=== PATIENT | female | born 2000 | race Two or more races ===

== ENCOUNTER 2021-01-28 07:46 | Inpatient (IN) | payer OTHER ==
[~2021-01-28] VITALS: Ht 157.5 cm; Wt 87.5 kg
[2021-01-28] MEDS ORDERED: PRENATAL CAPLE1 EAC1 PO (08:01)
== END 2021-01-30 14:52 | disposition home or self-care (01) | DRG 807 ==
LOC: LDR 07:46 → OB/GYN 07:46 → EDBD 07:46 → OB/GYN 18:50
PROVIDERS: ADMIT Obstetrics & Gynecology; ATTEND Obstetrics & Gynecology
PROC: 10E0XZZ Delivery of Products of Conception, External Approach (ICD-10-PCS; principal; 2021-01-28)
PROC: 3E033VJ Introduction of Other Hormone into Peripheral Vein, Percutaneous Approach (ICD-10-PCS; 2021-01-28)
PROC: 4A1HXFZ Monitoring of Products of Conception, Cardiac Rhythm, External Approach (ICD-10-PCS; 2021-01-28)
DX: O80 Encounter for full-term uncomplicated delivery (principal); Z37.0 Single live birth; Z3A.39 39 weeks gestation of pregnancy; Z20.822 Contact with and (suspected) exposure to COVID-19